=== PATIENT | female | born 1955 | race Two or more races ===

== ENCOUNTER 2024-12-03 08:38 | Emergency (ER) | payer OTHER, SELFPAY ==
[2024-12-03 08:39] VITALS: BMI 47.2
[2024-12-03 08:57] VITALS: BP 133/77; PULSE 95; RESP 18; TEMP 36.4; O2SAT 98
--- NOTE | 2024-12-03 09:00 | XR_ITS ---
Examination: Fingers, right hand second digit 3 views Technique: AP, oblique, lateral views right hand second digit 3 views. Exam date and time: December 03, 2024 0938 hrs. Indications: Redness swelling and pain involving the index finger beginning last week Findings: Soft tissue swelling about the second digit No cortical bone destruction No fracture No opaque foreign body Impression: Soft tissue swelling about the second digit No opaque foreign body or cortical bone destruction
--- NOTE | 2024-12-03 09:00 | PD.EDRME ---
Rapid Medical Screening Exam RME Arrival date/time: 12/03/24 08:38 69-year-old female presents emergency department today complains of infection to right index finger Chief Complaint: Wound/Laceration Time Seen by Provider: 12/03/24 08:54 Vital signs: Vital Signs Temperature 97.6 F 12/03/24 08:57 Pulse Rate 95 12/03/24 08:57 Respiratory Rate 18 12/03/24 08:57 Blood Pressure 133/77 H 12/03/24 08:57 Pulse Oximetry (%) 98 12/03/24 08:57 Oxygen Delivery Method Room Air 12/03/24 08:57
[2024-12-03 09:33] LABS: Basophils % (Auto) 0 % (0-2.5); Eosinophils # (Auto) 0.1 Thou/mm3 (0.0-0.5); Eosinophils % (Auto) 2 % (0-10); Hematocrit 40.8 % (36.0-46.0); Hemoglobin 14.6 g/dL (12.0-16.0); Immature Granulocytes % (Auto) 0 % (0-0); Immature Granulocytes Auto 0.01 Thou/mm3 (0.00-0.00); Lymphocytes % (Auto) 25 % (10-50); Mean Corpuscular HGB Conc 35.8 g/dl (31.0-37.0); Mean Corpuscular Hemoglobin 30.6 pg (25.0-35.0); Mean Corpuscular Volume 86 fL (80-100); Monocytes # (Auto) 0.4 Thou/mm3 (0.0-0.8); Monocytes % (Auto) 11 % (0-12); Neutrophils # (Auto) 2.5 Thou/mm3 (1.8-7.7); Neutrophils % (Auto) 62 % (37-80); Nucleated Red Blood Cell % 0 /100 WBC (0); Platelet Count 150 Thou/mm3 (140-440); RDW Standard Deviation 39.5 fL (36.4-46.3); Red Blood Count 4.77 Miln/mm3 (4.00-5.20)
[2024-12-03 09:34] LABS: Lactate (Lactic Acid) 0.9 mMol/L (0.4-2.0)
[2024-12-03 10:08] LABS: Glucose Estimated Average 97 mg/dL (80-131)
[2024-12-03 10:13] LABS: Alanine Aminotransferase 11 U/L (10-49); Albumin, Serum 4.5 gm/dL (3.4-4.8); Albumin/Globulin Ratio 1.5 (1.2-2.2); Alkaline Phosphatase 103 U/L (46-116); Anion Gap 10 (7-16); Aspartate Amino Transferase 13 U/L (0-34); BUN/Creatinine Ratio 16 Ratio (12-20); Bilirubin,Total 1.1 mg/dL (0.3-1.2); Blood Urea Nitrogen 11 mg/dL (9-23); C-Reactive Protein 1.6 mg/dL (0.0-0.9); Calcium 9.3 mg/dL (8.3-10.6); Calcium (Corrected) 9.3 mg/dL (8.5-10.1); Carbon Dioxide 24.6 mMol/L (20.0-31.0); Chloride 103 mMol/L (98-107); Creatinine (Component) 0.7 mg/dL (0.6-1.3); Estimated Creatinine Clearance 91.2 mL/min (>60); Glucose 107 mg/dL (74-106); Osmolality,Calculated 275 (275-295); Potassium 3.8 mMol/L (3.4-5.1); Procalcitonin 0.05 ng/ml (0.0-0.49); Sodium 138 mMol/L (136-145); Total Protein 7.5 gm/dL (5.7-8.2); eGFR > 60 See Note
[2024-12-03 10:16] LABS: Prothrombin Time 10.9 Seconds (9.0-12.2)
[2024-12-03 10:19] LABS: Sed Rate (ESR) 42 mm/hr (0-30)
[2024-12-03 12:47] VITALS: BP 150/90; PULSE 76; RESP 16; TEMP 36.4; O2SAT 97
--- NOTE | 2024-12-03 13:33 | EDNOTE_ITS ---
ED Wound/Laceration-RME/HPI General Chief Complaint: Wound/Laceration Stated Complaint: WOUND TO R INDEX FINGER Time Seen by Provider: 12/03/24 08:54 Arrival date/time: 12/03/24 08:38 This is a 69-year-old female that comes into the emergency room with complaints of right second digit swelling. Patient states approximately 1 week ago she had a splinter to her right second digit tip of finger kind of going into the nail. Patient was picking at it and took a layer of skin off to try to get the splinter.. Patient states she was unable to take the splinter out but does not see it anymore. Patient also states that she was seen by primary provider the next day and was given Zithromax for strep throat. Patient was feeling better for her throat but 3 days ago went back to see her primary provider and was started on clindamycin 300 mg twice a day for an infection. Patient has been soaking her finger in hot salt water and she has been bathing it with iodine to the tip. Patient has some swelling to her right second digit along with pain. The tip of the second digit appears dark in color. But the rest of the finger just swollen. 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 RME / HPI RME / HPI narrative: 12/03/24 08:38 69-year-old female presents emergency department today complains of infection to right index finger Related Data Previous Rx's ?Medication ?Instructions ?Recorded ibuprofen 800 mg tablet 800 mg PO Q6H PRN pain #7 ta bs 12/03/24 Allergies Allergy/AdvReac Type Severity Reaction Status Date / Time amoxicillin (From Augmentin) Allergy Verified 12/03/24 08:39 clavulanic acid (From Allergy Verified 12/03/24 08:39 Augmentin) Review of Systems Review of Systems Systems Reviewed: All systems reviewed, normal except as documented Past Medical History Past Medical History Comments PMH COMMENT: see hpi ED Exam General General appearance: Present alert and in no apparent distress Head Head exam: Present atraumatic Eye Eye exam: Present normal appearance, PERRL and EOMI ENT ENT exam: Present normal exam, normal oropharynx and mucous membranes moist Neck Neck exam: Present normal inspection, full ROM and trachea midline Chest Chest inspection: Present normal inspection and symmetric chest wall rise Respiratory Respiratory exam: Present normal lung sounds bilaterally Cardiovascular Cardiovascular exam: Present regular rate Abdominal Exam Abdominal exam: Present soft and normal bowel sounds Extremities Exam Extremities exam: Present full ROM and other ( right second digit swelling, tip of finger is dark in color approx 4x4mm, warm to touch, avulsion of skin tip of second digit) Back Exam Back exam: Present normal inspection and full ROM Neurological Exam Neurological exam: Present alert, oriented X3 and CN II-XII intact Psychiatric Psychiatric exam: Present normal affect and normal mood Skin Skin exam: Present warm, dry, intact and normal color Course Quality Measures none Orders Category Date Time Status Referral Wound Care Stat Cons 12/03/24 13:58 Active XR finger RT min 2V Stat Exams 12/03/24 09:00 Completed A1C [Glycohemoglobin w (eAG)] Stat Lab 12/03/24 09:25 Completed Blood Culture (Lab) Stat Lab 12/03/24 09:25 Completed CBC Stat Lab 12/03/24 09:25 Completed CMP [Comprehensive Metabolic Panel] Stat Lab 12/03/24 09:25 Completed CRP [C-Reactive Protein] Stat Lab 12/03/24 09:25 Completed ESR [Sed Rate (ESR)] Stat Lab 12/03/24 09:25 Completed Lactic Acid [Lactate (Lactic Acid)] Stat Lab 12/03/24 09:25 Completed PT [Prothrombin Time with INR] Stat Lab 12/03/24 09:25 Completed Procalcitonin Stat Lab 12/03/24 09:25 Completed HYDROcodone*/APAP 5/325 [[place] 5/325] Med 12/03/24 14:04 Discontinued 1 tab PO X1 ONE Ibuprofen Tab [Motrin Tab] Med 12/03/24 14:04 Discontinued 800 mg PO X1 ONE Ondansetron Odt [Zofran Odt] Med 12/03/24 14:04 Discontinued 4 mg PO X1 ONE Vital Signs Vital signs: Vital Signs Temperature 97.6 F 12/03/24 08:57 Pulse Rate 95 12/03/24 08:57 Respiratory Rate 18 12/03/24 08:57 Blood Pressure 133/77 H 12/03/24 08:57 Pulse Oximetry (%) 98 12/03/24 08:57 Oxygen Delivery Method Room Air 12/03/24 08:57 Wound / Laceration MDM Narrative MDM Narrative:: This is a 69-year-old female that comes into the emergency room with complaints of right second digit swelling. Patient states approximately 1 week ago she had a splinter to her right second digit tip of finger kind of going into the nail. Patient was picking at it and took a layer of skin off to try to get the splinter.. Patient states she was unable to take the splinter out but does not see it anymore. Patient also states that she was seen by primary provider the next day and was given Zithromax for strep throat. Patient was feeling better for her throat but 3 days ago went back to see her primary provider and was started on clindamycin 300 mg twice a day for an infection. Patient has been soaking her finger in hot salt water and she has been bathing it with iodine to the tip. Patient has some swelling to her right second digit along with pain. The tip of the second digit appears dark in color. But the rest of the finger just swollen. 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 right hand: Findings: Soft tissue swelling about the second digit No cortical bone destruction No fracture No opaque foreign body Impression: Soft tissue swelling about the second digit No opaque foreign body or cortical bone destruction Labs reviewed. CBC unremarkable. ESR 42. PT/INR unremarkable. Procalcitonin is 0.05, CRP is 1.6. Lactic acid 0.9. Hemoglobin A1c is 5.0 discussed case with . He went to bedside to assess wound. will refer to wound center Patient reports that she is following up with her primary provider tomorrow. come back to the emergency room if symptoms change or worsen. Patient understands current plan of care. I changed antibiotics dosing for patient. Patient data External records reviewed:: [facility] previous records Clinical information provided by:: patient Social determinants that could affect healthcare access:: none Patient has the following chronic illnesses:: see hpi How is presenting disease/condition affected by chronic disease/condition?: uneffected by Evaluation data The following diagnostics were reviewed and interpreted by me:: lab results and radiology exam(s) Lab and/or radiology exams considered but not ordered:: none Interpretation Summary: see note Medications / Prescriptions Medications or Prescriptions considered but not ordered:: none Medication administrations:: Medication Administration History Discontinued Medications Hydrocodone Bitart/Acetaminophen (Hydrocodone/Apap 5/325 Tablet) 1 tab PO X1 ONE Stop: 12/03/24 14:05 Last Admin: 02/02/25 14:50 Dose: 1 tab Documented By: MATEUS Ibuprofen (Ibuprofen Tab 400 Mg Tablet) 800 mg PO X1 ONE Stop: 12/03/24 14:05 Last Admin: 12/03/24 14:49 Dose: 800 mg Documented By: MATEUS Ondansetron HCl (Ondansetron Odt 4 Mg Tabrap) 4 mg PO X1 ONE; Protocol Stop: 12/03/24 14:05 Last Admin: 12/03/24 14:51 Dose: 4 mg Documented By: MATEUS see [facility] Consultations Consultation(s) initiated? (list below): No Diagnosis Wound Differential Diagnosis: laceration, abscess, abrasion and avulsion of skin Most likely diagnosis given after review of the tests above:: cellulitis Admission Indicated Admission indicated?: not indicated Admission Request Was there a request for admission?: No Disposition Plan Disposition Plan: Discharge Discharge Attestation Discharge Attestation: The patient and all family members were given an opportunity to ask questions and understood the discharge instructions. Discharge instructions specifically effects, indications for sooner follow up or return to the emergency department, and the expected course of current diagnosis. Patient condition: Stable Discharge Plan Plan Patient Disposition: HOME (Self Care) Patient condition on transfer: Stable Prescriptions/Referrals Prescriptions/Med Rec: New ibuprofen 800 mg tablet 800 mg PO Q6H PRN (Reason: pain) Qty: 7 0RF Referrals: No Primary/Family,Physician [Primary Care Provider] - In 1 week Problem List Clinical Impression: Cellulitis, Finger pain, Finger swelling Patient/Caregiver Discharge Instructions Discharge Activity: activity as tolerated Education Materials: ED Cellulitis Additional Instructions: Patient will see primary provider tomorrow. Will follow-up with wound care center. Come back to the emergency room if symptoms change or worsen. Print Language: Congolese Stand Alone Forms: [employer]uca Award Info., Patient Portal Info Letter MABEL/ABDULKADIR Supervising Physician MABEL/ABDULKADIR Supervising Physician: lenka
[2024-12-03] MEDS: IBUPROFEN TAB 400 MG TABLET 800 MG PO (14:49)
[2024-12-03] MEDS: HYDROcodone/APAP 5/325 TABLET 1 TAB PO (14:50)
[2024-12-03] MEDS: ONDANSETRON ODT 4 MG TABRAP PO (14:51)
[2024-12-03 15:00] VITALS: BP 144/88; PULSE 74; RESP 17; TEMP 36.6; O2SAT 94
== END 2024-12-03 15:00 | disposition home or self-care (01) ==
PROVIDERS: Nurse Practitioner Primary Care; Emergency Provider Emergency Medicine
DX: L03.011 Cellulitis of right finger (principal); E11.9 Type 2 diabetes mellitus without complications
CPT/HCPCS: 36415; 73140; 80053; 83036; 83605; 84145; 85025; 85610; 85652; 86140; 87040; 99283; Q0162; A9270

== ENCOUNTER → 2025-01-01 | Outpatient (CLI) | payer OTHER, SELFPAY | END | disposition home or self-care (01) | PROVIDERS: PCP Physician Assistant Medical; Referring Provider Physician Assistant Medical; Visit Provider Student in an Organized Health Care Education/Training Program | DX: L02.511 Cutaneous abscess of right hand (principal); S61.200A Unspecified open wound of right index finger without damage to nail, initial encounter; X58.XXXA Exposure to other specified factors, initial encounter; E66.9 Obesity, unspecified; I10 Essential (primary) hypertension; M19.049 Primary osteoarthritis, unspecified hand; J45.909 Unspecified asthma, uncomplicated; J44.9 Chronic obstructive pulmonary disease, unspecified; B19.20 Unspecified viral hepatitis C without hepatic coma | CPT/HCPCS: 99214; G0463 ==

== ENCOUNTER → 2025-01-08 | Outpatient (CLI) | payer OTHER, SELFPAY | END | disposition home or self-care (01) | PROVIDERS: PCP Physician Assistant Medical; Referring Provider Physician Assistant Medical; Visit Provider Surgery | DX: L02.511 Cutaneous abscess of right hand (principal); S61.200A Unspecified open wound of right index finger without damage to nail, initial encounter; X58.XXXA Exposure to other specified factors, initial encounter; E66.9 Obesity, unspecified; I10 Essential (primary) hypertension | CPT/HCPCS: 99213; A9270; G0463 ==

== ENCOUNTER → 2025-01-22 | Outpatient (CLI) | payer OTHER, SELFPAY | END | disposition home or self-care (01) | LOC: SWHD 08:48 | PROVIDERS: Visit Provider Student in an Organized Health Care Education/Training Program | DX: L02.511 Cutaneous abscess of right hand (principal); S61.200A Unspecified open wound of right index finger without damage to nail, initial encounter; X58.XXXA Exposure to other specified factors, initial encounter; E66.9 Obesity, unspecified; I10 Essential (primary) hypertension | CPT/HCPCS: 97597; A9270 ==

== ENCOUNTER → 2025-02-05 | Outpatient (CLI) | payer OTHER, SELFPAY | END | disposition home or self-care (01) | LOC: SWHD 08:43 | PROVIDERS: Visit Provider Student in an Organized Health Care Education/Training Program | DX: L02.511 Cutaneous abscess of right hand (principal); S61.200A Unspecified open wound of right index finger without damage to nail, initial encounter; X58.XXXA Exposure to other specified factors, initial encounter; E66.9 Obesity, unspecified; I10 Essential (primary) hypertension; Z72.0 Tobacco use | CPT/HCPCS: 99212; G0463 ==